=== PATIENT | male | born 1950 | race Caucasian/White ===

== ENCOUNTER 2022-11-20 05:11 | Inpatient (IN) ==
--- NOTE | 2022-10-21 13:33 | PAT Medication Instructions ---
Medication Instructions Date of Service October 21, 2022 Home Medications albuterol sulfate 90 mcg/actuation aerosol inhaler 1 inh inhalation QID PRN SHORT OF BREATH atorvastatin 20 mg tablet (Lipitor) 20 mg PO QAM cholecalciferol (vitamin D3) 25 mcg (1,000 unit) tablet (Vitamin D3) 25 mcg PO HS hydrochlorothiazide 25 mg tablet 25 mg PO QAM levocetirizine 5 mg tablet (Xyzal) 5 mg PO PM magnesium oxide 400 mg PO QAM metformin 500 mg tablet 500 mg PO BID metoprolol succinate 50 mg tablet,extended release 24 hr (Toprol XL) 50 mg PO QAM mometasone 50 mcg/actuation nasal spray 2 spray intranasal BID PRN Congestion montelukast 10 mg tablet (Singulair) 10 mg PO HS Multivitamin 50 Plus tablet 1 tab PO HS olmesartan 40 mg tablet (Benicar) 20 mg PO QAM omeprazole 20 mg capsule,delayed release 20 mg PO QAM sertraline 100 mg tablet (Zoloft) 100 mg PO QAM tamsulosin 0.4 mg capsule (Flomax) 0.4 mg PO QAM valacyclovir 500 mg tablet (Valtrex) 500 mg PO QAM vit C 133.3 ss-lsoazwtfdhom-xfaehhb-elderberry 16.7 mg chewable tablet (Emergen- C Elderberry) 2 tab PO QAM zinc 10 mg tablet 10 mg PO BID STOP taking 2 weeks before surgery (or as soon as possible if surgery is within 2 weeks) vit C 133.3 gf-lkcbdwygrvnz-fxvbqkf-elderberry 16.7 mg chewable tablet (Emergen- C Elderberry) 2 tab PO QAM DO NOT take the morning of surgery hydrochlorothiazide 25 mg tablet 25 mg PO QAM magnesium oxide 400 mg PO QAM metformin 500 mg tablet 500 mg PO BID olmesartan 40 mg tablet (Benicar) 20 mg PO QAM zinc 10 mg tablet 10 mg PO BID Take morning of surgery With a small sip of water, OTHERWISE NOTHING TO EAT OR DRINK AFTER MIDNIGHT: albuterol sulfate 90 mcg/actuation aerosol inhaler 1 inh inhalation QID PRN SHORT OF BREATH (use if needed; please bring rescue inhaler with you to hospital day of surgery if possible) atorvastatin 20 mg tablet (Lipitor) 20 mg PO QAM metoprolol succinate 50 mg tablet,extended release 24 hr (Toprol XL) 50 mg PO QAM mometasone 50 mcg/actuation nasal spray 2 spray intranasal BID PRN Congestion (if needed) omeprazole 20 mg capsule,delayed release 20 mg PO QAM sertraline 100 mg tablet (Zoloft) 100 mg PO QAM tamsulosin 0.4 mg capsule (Flomax) 0.4 mg PO QAM valacyclovir 500 mg tablet (Valtrex) 500 mg PO QAM Take evening before surgery albuterol sulfate 90 mcg/actuation aerosol inhaler 1 inh inhalation QID PRN SHORT OF BREATH (if needed) cholecalciferol (vitamin D3) 25 mcg (1,000 unit) tablet (Vitamin D3) 25 mcg PO HS levocetirizine 5 mg tablet (Xyzal) 5 mg PO PM metformin 500 mg tablet 500 mg PO BID mometasone 50 mcg/actuation nasal spray 2 spray intranasal BID PRN Congestion (if needed) montelukast 10 mg tablet (Singulair) 10 mg PO HS Multivitamin 50 Plus tablet 1 tab PO HS zinc 10 mg tablet 10 mg PO BID Other Notes If you have any questions please call us at [phone] or [phone] or [phone] or [phone]
--- NOTE | 2022-10-23 09:26 | Anesthesiology Consultation ---
Date of Service October 23, 2022 Assessment & Plan (1) Encounter for pre-operative examination: - awaiting PCP clearance. - abn stress test, reduced appetite, unintentional 10 lb weight loss over past several months. denies night sweats, worsened depression, SI. PCP clearance needed per discussion with Dr. Keen. Pt and were advised would be sending optimization form to PCP at PAT visit. Surgeon's office made aware. - anesthesia concern: dyspnea, gasping after peripheral block for previous shoulder surgery; pt states no issues with subsequent shoulder surgery and peripheral block. Case discussed with Dr. Keen in detail who advised consideration for anesthesiologist assigned to case day of surgery to either not do block or to do peripheral nerve block with lower likelihood to impact phrenic nerve. - check BSG am DOS. - Outpatient joint assessment: Patient is currently scheduled for inpatient pathway. If re-evaluated pending system levels during current pandemic/surgeon requests outpatient pathway, patient is not acceptable candidate for outpatient joint program from anesthesia standpoint. Chart Review Chart Review: Pending: Refer to Additional Notes / Consult section and Patient seen in Pre Admission Testing Teaching & Discussion Pre-Anesthesia Teaching/Discussion Notes: Instructed NPO after midnight before surgery, except medications with 15 cc of water. Medication instructions provided according to the PAT guidelines. History Surgery Operation Date: 11/20/22 13:00 Proposed Procedures p Left Reverse Total Shoulder Arthroplasty - Van Ch M.D. Height/Weight Height: 5 ft 5 in Weight: 108.862 kg Allergies Allergy/AdvReac Type Severity Reaction Status Date / Time No Known Allergies Allergy Verified 10/21/22 07:36 Medications Home Medications Medication Instructions Recorded Confirmed Last Taken albuterol sulfate 90 mcg/actuation 1 inh inhalation QID PRN SHORT OF 10/21/22 10/21/22 Unknown aerosol inhaler BREATH atorvastatin 20 mg tablet (Lipitor) 20 mg PO QAM 10/21/22 10/21/22 Unknown cholecalciferol (vitamin D3) 25 25 mcg PO HS 10/21/22 10/21/22 Unknown mcg (1,000 unit) tablet (Vitamin D3) hydrochlorothiazide 25 mg tablet 25 mg PO QAM 10/21/22 10/21/22 Unknown levocetirizine 5 mg tablet (Xyzal) 5 mg PO PM 10/21/22 10/21/22 Unknown magnesium oxide 400 mg PO QAM 10/21/22 10/21/22 Unknown metformin 500 mg tablet 500 mg PO BID 10/21/22 10/21/22 Unknown metoprolol succinate 50 mg 50 mg PO QAM 10/21/22 10/21/22 Unknown tablet,extended release 24 hr (Toprol XL) mometasone 50 mcg/actuation nasal 2 spray intranasal BID PRN 10/21/22 10/21/22 Unknown spray Congestion montelukast 10 mg tablet 10 mg PO HS 10/21/22 10/21/22 Unknown (Singulair) fuzkltmnhpwk-swqzmewz-opguia 1 tab PO HS 10/21/22 10/21/22 Unknown tablet (Multivitamin 50 Plus tablet) olmesartan 40 mg tablet (Benicar) 20 mg PO QAM 10/21/22 10/21/22 Unknown omeprazole 20 mg capsule,delayed 20 mg PO QAM 10/21/22 10/21/22 Unknown release sertraline 100 mg tablet (Zoloft) 100 mg PO QAM 10/21/22 10/21/22 Unknown tamsulosin 0.4 mg capsule (Flomax) 0.4 mg PO QAM 10/21/22 10/21/22 Unknown valacyclovir 500 mg tablet 500 mg PO QAM 10/21/22 10/21/22 Unknown (Valtrex) vit C 133.3 2 tab PO QAM 10/21/22 10/21/22 Unknown sc-oqqbzqpczcje-pdqlewv-elderberry 16.7 mg chewable tablet (Emergen-C Elderberry) zinc 10 mg tablet 10 mg PO BID 10/21/22 10/21/22 Unknown Past Medical History Medical History (Updated 10/23/22 @ 10:09 by Jesusita James PA-C) Abnormal stress test 2017, pt and state are not aware, deny additional testing Asthma BPH (benign prostatic hyperplasia) Carotid stenosis < 50% stenosis ICAs bilat 09/25 carotid doppler Chronic obstructive pulmonary disease pt states dx was questioned yrs ago, continues inhalers for persistent symptoms, follows with PCP, last rescue inhaler use 2 days ago; he states typically only uses rescue inhaler prior to planned increased activity; controlled, stable per pt Depression Diabetes mellitus, type 2 NIDDM GERD (gastroesophageal reflux disease) controlled, stable per pt History of COVID-19 05/2022>denies hospitalization; symptoms fully resolved Hyperlipidemia Hypertension controlled, stable per pt Irregular heart rate occasional skipped beats, denies associated palpitations, dizziness or lightheadedness per pt Peripheral neuropathy hands and feet Pulmonary nodules follows with Dr. Gimenez per PCP records Restless leg syndrome SCC (squamous cell carcinoma) face, s/p surgical intervention Sleep apnea CPAP with supplemental oxygen per PCP records; pt and state he was later advised supplemental oxygen was no longer needed Patient denies h/o stroke, seizures, heart attack, heart failure, blood clots or blood transfusions. Exercise / Class Metabolic Activity III < 4 Walking/Shop/Light housework (on flat surfaces d/t fall; denies shortness of breath or chest discomfort with usual activities) Past Family History Family History Other No family history of adverse response to anesthesia Past Surgical History Surgical History (Updated 10/23/22 @ 10:10 by Jesusita James PA-C) H/O knee surgery meniscectomy right knee History of appendectomy History of cholecystectomy History of colonoscopy History of cystoscopy History of esophagogastroduodenoscopy (EGD) History of repair of rotator cuff RT/LEFT History of tooth extraction Hx of eye surgery RT>NAIL INJURY (HAS LENS EXCHANGED>LIMITED VISION IN RT EYE) Past Anesthesia History No Family Hx of Anesthesia Complications and Other (dyspnea, gasping after peripheral block for previous shoulder surgery; pt states no issues with subsequent shoulder surgery and peripheral block) History of PONV No Hx of PONV and No Hx of Motion Sickness Social History Smoking Status: Former smoker tobacco type: cigarettes Do You Dip or Chew Tobacco: No Smoking End Date: 2006 Hx Alcohol Use: No substance use type: does not use Review of Systems Patient denies chest pain, shortness of breath, dyspnea on exertion, fever, chills, cough, wheezing, lightheadedness, dizziness, presyncope, or palpitations. Physical Exam Vital Signs Vitals BP 101/60 manual P 65 TEMP 98 SP02 94% on RA RESP 18 Physical Full cervical extension range of motion without pain TMD 3.5 finger breadths Mallampati Score 2 Dentition: intact, cap; denies chipped or loose teeth, implants or bridges Lungs: normal respiratory effort. Good air movement, clear throughout to auscultation, no adventitious breath sounds Cardiac: regular rate and rhythm, no murmurs noted Carotid arteries: negative bruit bilat Lab Results Anesthesia Preop Results Results Anesthesia Widget: WBC 8.15 K/ul (4.8-10.8) 10/23/22 Hgb 13.7 g/dl (14.0-18.0) L 10/23/22 Hct 39.2 % (40.1-51.0) L 10/23/22 Plt 227 K/uL (130-400) 10/23/22 Na 142 mmol/L (136-145) 10/23/22 K 3.8 mmol/L (3.5-5.1) 10/23/22 Cl 107 mmol/L (98-107) 10/23/22 CO2 29 mmol/L (21-32) 10/23/22 BUN 22 mg/dl (6-23) 10/23/22 Creat 0.78 mg/dl (0.6-1.4) 10/23/22 Glucose Level 144 mg/dl (70-99(Fasting)) H 10/23/22 PT 11.4 Seconds (9.0-12.0) 10/23/22 PTT 26.6 Seconds (21.0-31.0) 10/23/22 INR 1.1 (0.9-1.1) 10/23/22 HA1c 6.7 % (4.5-5.6) H 10/23/22 Urine Color Dark Yellow 10/23/22 Urine Appearance Clear (Clear) 10/23/22 Urine pH 5.0 (4.5-7.5) 10/23/22 Urine Specific [place] 1.027 (1.000-1.030) 10/23/22 Urine Protein Negative (Negative) 10/23/22 Urine Glucose (UA) Negative (Negative) 10/23/22 Urine Ketones Trace (Negative) H 10/23/22 Urine Blood Negative (Negative) 10/23/22 Urine Nitrite Negative (Negative) 10/23/22 Urine Bilirubin Negative (Negative) 10/23/22 Urine Urobilinogen Negative (Negative) 10/23/22 Urine Leukocyte Esterase Negative (Negative) 10/23/22 Blood Type O Positive 10/23/22 Antibody Screen NEGATIVE 10/23/22 Testing Electrocardiogram Date: 10/23/22 Sinus bradycardia, rate 55 bpm Chest X-Ray Date: 10/23/22 Cardiomediastinal and hilar silhouettes are within normal limits. No pneumothorax, pleural effusion, airspace consolidation or overt pulmonary edema. Bones appear grossly intact. Spondylitic spurring of the spine. Surgical clips of the upper abdomen. IMPRESSION: No acute process. Echocardiogram Date: 09/12/22 EF 60% No obvious regional wall motion abnormalities Mildly dilated LA No significant valvular pathology Stress Test Date: 04/03/17 Pharmacologic EF 62% Small fixed defect involving the inferior wall could represent scarring from previous infarction Other Testing Carotid doppler 09/12/22 Scattered smooth plaque throughout both carotid circulations with less than 50% stenosis COVID-19 Risk Screen Screening Information COVID-19 Screen Date: 10/23/22 Exposure 21 Days Family/Household +COVID Last 21 Days: No Exposure 10 Days Any COVID Exposure Last 10 Days: No Symptoms Last 10 Days Experienced COVID Sx Last 10 Days: No + COVID 0-90 Days COVID + in Last 0-90 Days: No
--- NOTE | 2022-11-19 18:25 | History & Physical Report ---
Date of Service November 19, 2022 Assessment & Plan (1) Complete rotator cuff tear or rupture of left shoulder, not specified as traumatic: Plan: He has a massive, retracted, full-thickness rotator cuff tear with near complete fatty atrophy of the supraspinatus and infraspinatus muscle bellies. This is therefore an irrepairable rotator cuff tear. I suspect this is an acute on chronic tear with his more recent injury but chronic tearing of the rotator cuff. He has proximal migration of the humeral head and remodeling changes consistent with early rotator cuff tear arthropathy. He continues to have very limited motion and function of his shoulder. We discussed treatment options including observation, injections, or definitive surgical intervention with a reverse total shoulder arthroplasty. I advised him that I can help with his pain but not his function with an injection. The only way to significantly improve his function and pain is with a reverse total shoulder. He would like to proceed with that at this point. I think is very reasonable. Risks, benefits, and alternatives of surgery were explained in detail. The surgical procedure, as well as postoperative recovery and rehabilitation, was also explained in detail. Risks include bleeding; infection; damage to surrounding structures such as nerves, blood vessels, and tendons that run in the area; persistent pain or stiffness; hardware failure; dislocation; brachial plexus palsy; blood clots; or need for further surgery. The patient understands all of this and wishes to proceed with surgery. Risks will be reviewed on the day of surgery and informed consent obtained. History of Present Illness Chief Complaint: Left shoulder pain and weakness Primary Care Provider: Jaquelin Rosales Mr. Del Angel returns. Again, he is a 72-year-old [id number] male with a left shoulder injury that occurred on September 17 when he fell down a flight of stairs. He actually has no recollection of the event, but thinks that he fell going down one of the top steps on the flight of steps and fell all the way down and hit his head. He does think that there was a loss of consciousness. He was life-flighted to [place]. He reportedly was diagnosed with a left shoulder dislocation that was reduced in the emergency room. His says that the shoulder then redislocated while he was in the ER without any obvious recurrent trauma, and was again reduced without difficulty. Since then, he denies any recurrent dislocations or feelings of instability. However, he has had profound loss of function in that left shoulder. He notes that his left shoulder was functioning well prior to this injury on September 17. He does note a previous left shoulder rotator cuff repair surgery done about 8 years ago. He did note some pain in that shoulder around 6 months ago and received a subacromial steroid injection that helped with this pain. He reports that he did get an MRI around that time which reportedly showed some recurrent tearing of the rotator cuff, but he maintained good function and did not have any surgical intervention. This was done through another provider. He denies any other significant extremity injury from this fall. No intracranial bleed. Allergies Allergy/AdvReac Type Severity Reaction Status Date / Time No Known Allergies Allergy Verified 10/21/22 07:36 Home Medications Medication Instructions Recorded Confirmed Type albuterol sulfate 90 mcg/actuation 1 inh inhalation QID PRN SHORT OF 10/21/22 10/21/22 History aerosol inhaler BREATH atorvastatin 20 mg tablet (Lipitor) 20 mg PO QAM 10/21/22 10/21/22 History cholecalciferol (vitamin D3) 25 25 mcg PO HS 10/21/22 10/21/22 History mcg (1,000 unit) tablet (Vitamin D3) hydrochlorothiazide 25 mg tablet 25 mg PO QAM 10/21/22 10/21/22 History levocetirizine 5 mg tablet (Xyzal) 5 mg PO PM 10/21/22 10/21/22 History magnesium oxide 400 mg PO QAM 10/21/22 10/21/22 History metformin 500 mg tablet 500 mg PO BID 10/21/22 10/21/22 History metoprolol succinate 50 mg 50 mg PO QAM 10/21/22 10/21/22 History tablet,extended release 24 hr (Toprol XL) mometasone 50 mcg/actuation nasal 2 spray intranasal BID PRN 10/21/22 10/21/22 History spray Congestion montelukast 10 mg tablet 10 mg PO HS 10/21/22 10/21/22 History (Singulair) jdjbcvgxprmn-vzlemgop-geockb 1 tab PO HS 10/21/22 10/21/22 History tablet (Multivitamin 50 Plus tablet) olmesartan 40 mg tablet (Benicar) 20 mg PO QAM 10/21/22 10/21/22 History omeprazole 20 mg capsule,delayed 20 mg PO QAM 10/21/22 10/21/22 History release sertraline 100 mg tablet (Zoloft) 100 mg PO QAM 10/21/22 10/21/22 History tamsulosin 0.4 mg capsule (Flomax) 0.4 mg PO QAM 10/21/22 10/21/22 History valacyclovir 500 mg tablet 500 mg PO QAM 10/21/22 10/21/22 History (Valtrex) vit C 133.3 2 tab PO QAM 10/21/22 10/21/22 History qi-tbdxubhzevnl-bwbhnjj-elderberry 16.7 mg chewable tablet (Emergen-C Elderberry) zinc 10 mg tablet 10 mg PO BID 10/21/22 10/21/22 History Past Med/Surg History Medical History (Updated 11/19/22 @ 18:24 by Van Ch M.D.) Abnormal stress test 2016, pt and state are not aware, deny additional testing Asthma BPH (benign prostatic hyperplasia) Carotid stenosis < 50% stenosis ICAs bilat 09/25 carotid doppler Chronic obstructive pulmonary disease pt states dx was questioned yrs ago, continues inhalers for persistent symptoms, follows with PCP, last rescue inhaler use 2 days ago; he states typically only uses rescue inhaler prior to planned increased activity; controlled, stable per pt Depression Diabetes mellitus, type 2 NIDDM GERD (gastroesophageal reflux disease) controlled, stable per pt History of COVID-19 05/2022>denies hospitalization; symptoms fully resolved Hyperlipidemia Hypertension controlled, stable per pt Irregular heart rate occasional skipped beats, denies associated palpitations, dizziness or lightheadedness per pt Peripheral neuropathy hands and feet Pulmonary nodules follows with Dr. Gimenez per PCP records Restless leg syndrome SCC (squamous cell carcinoma) face, s/p surgical intervention Sleep apnea CPAP with supplemental oxygen per PCP records; pt and state he was later advised supplemental oxygen was no longer needed Surgical History (Updated 10/23/22 @ 10:10 by Jesusita James PA-C) H/O knee surgery meniscectomy right knee History of appendectomy History of cholecystectomy History of colonoscopy History of cystoscopy History of esophagogastroduodenoscopy (EGD) History of repair of rotator cuff RT/LEFT History of tooth extraction Hx of eye surgery RT>NAIL INJURY (HAS LENS EXCHANGED>LIMITED VISION IN RT EYE) Family History Other No family history of adverse response to anesthesia Social History Smoking Status: Former smoker Second Hand Exposure: Yes (IN THE PAST); Hx Alcohol Use: No Preferred Language: Faroese [employer] Required: No Beliefs That Will Affect Care: None Current Living Situation: Spouse Feels Safe at Home: Yes Assistive Devices: Glasses Physical Exam Physical Exam: Examination of the left shoulder reveals fairly severe limitation and weakness of the supraspinatus and infraspinatus. He can only achieve about 45 degrees of active abduction, and active rotation only to neutral. Subscapularis strength is well maintained. Positive [place]'s test. Positive impingement testing. Results & Data ([facility]) Diagnostic Findings Previous x-rays of the left shoulder from September 17 were reviewed. We do not have any x-ray showing dislocation. Presumably all of the available x-rays are post reduction that show concentric reduction of the glenohumeral joint. CT scan of the left shoulder from September 18 was reviewed. It shows some mild glenohumeral joint arthritis, but is otherwise unremarkable. No fractures are seen. Incidentally noted are multiple old healed rib fractures. New MRI of the left shoulder obtained on 10/13/22 was reviewed. It shows a massive, full-thickness, retracted rotator cuff tear. The rotator cuff tendon is medial to the level of the glenoid rim. There is near complete fatty atrophy of the supraspinatus and infraspinatus muscle bellies, as well as the upper portion of the subscapularis. There is proximal migration of the humeral head with remodeling changes consistent with early rotator cuff tear arthropathy.
[2022-11-20] MEDS ORDERED: LR 15ML/HR IV SCH (06:00)
[2022-11-20] MEDS ORDERED: ACETAMINOPHEN 500 MG TAB PO SCH (06:00)
[2022-11-20] MEDS ORDERED: dexAMETHasone 4 MG TAB PO SCH (06:00)
[2022-11-20] MEDS ORDERED: TRANEXAMIC ACID 1,000 MG **IV Pre-op IV SCH (06:00)
[2022-11-20] MEDS ORDERED: CeleBREX 200 MG CAP PO SCH (06:00)
[2022-11-20] MEDS ORDERED: FAMOTIDINE 20 MG TAB PO SCH (06:00)
[2022-11-20] MEDS ORDERED: GABAPENTIN 300 MG CAP PO SCH (06:00)
[2022-11-20] MEDS ORDERED: ceFAZolin 2000MG 2,000 MG/15 ML SYR IV SCH (06:00)
[2022-11-20] MEDS ORDERED: BUPIVACAINE 0.5 % 5 MG/1 ML PF 10ML VIAL ONE (06:36)
[2022-11-20] MEDS ORDERED: fentaNYL citrate 100 MCG/2 ML VIAL ONE (06:48)
[2022-11-20] MEDS ORDERED: DEXAMETHASONE SOD INJ 4 MG/ML VIAL ONE (06:48)
[2022-11-20] MEDS ORDERED: ROCURONIUM BROMIDE 10 MG/ML 5 ML VIAL IV ONE (06:48)
[2022-11-20] MEDS ORDERED: LIDOCAINE 2% MPF LOCAL 5 ML VIAL INFIL ONE (06:48)
[2022-11-20] MEDS ORDERED: PROPOFOL IV EMULSION 10 MG/ML 20 ML VIAL IV ONE (06:48)
[2022-11-20] MEDS ORDERED: ONDANSETRON INJ 2 MG/ML 2 ML VIAL ONE (06:48)
[2022-11-20] MEDS ORDERED: MIDAZOLAM HCL 1 MG/ML 2ML VIAL ONE (06:48)
--- NOTE | 2022-11-20 07:03 | History & Physical Bridge Note ---
Date of Service November 20, 2022 History & Physical Bridge Note I have examined the patient, reviewed the History & Physical and in the interval since the performance of the History & Physical I have noted the following changes of clinical significance: no changes noted
[2022-11-20] MEDS ORDERED: NALOXONE HCL 0.4 MG/1 ML VIAL/CARP IV PRN ×2 (07:35→10:11)
[2022-11-20] MEDS ORDERED: HYDROmorphone INJ 1 MG/ML SYRINGE IV PRN (07:35)
[2022-11-20] MEDS ORDERED: LABETALOL HCL IV 5 MG/ML 20ML IV PRN (07:35)
[2022-11-20] MEDS ORDERED: PROMETHAZINE HCL 12.5 MG in SODIUM CHLORIDE 0.9% 50 ML IV PRN (07:35)
[2022-11-20] MEDS ORDERED: ONDANSETRON INJ 2 MG/ML 2 ML VIAL IV PRN ×2 (07:35→10:11)
[2022-11-20] MEDS ORDERED: fentaNYL citrate 100 MCG/2 ML VIAL IV PRN (07:35)
[2022-11-20] MEDS ORDERED: ATROPINE SULFATE 0.1 MG/ML 10ML SYR IV PRN (07:35)
[2022-11-20] MEDS ORDERED: FLUMAZENIL 0.1 MG/1 ML 10 ML VIAL IV PRN (07:35)
[2022-11-20] MEDS ORDERED: ePHEDrine sulfate 50 MG/ML AMP IV PRN (07:35)
[2022-11-20] MEDS ORDERED: SUCCINYLCHOLINE 100MG/5ML SYR IV ONE (07:39)
--- NOTE | 2022-11-20 09:20 | Operative Report ---
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 Surgeon Van Ch MD [place] Operator John Kwok PA-C Estimated Blood Loss 75 Findings Consistent with Post-Op Diagnosis Specimens None Drains None Anesthesia Type General Regional Complications none Disposition Disposition: Recovery Room Indications Mr. Del Angel is a 72-year-old male with left shoulder pain and weakness since he fell down a flight of steps on September 17. He also notes a previous history of rotator cuff repair 8 years ago. History, clinical exam, and imaging were consistent with the above diagnosis. Risks, benefits, and alternatives of surgery were explained in detail. The patient understood all this and wished to proceed. Description of Procedure Components Implanted: Tornier Reverse Total Shoulder implants Perform glenoid baseplate: 29mm, 15 degree full wedge with 6.5mm central screw and 5.0mm peripheral screws Glenosphere: 39mm, +3mm, eccentric offset Ascend Flex humeral stem: 7B Standard length (90mm) Humeral tray: 3.5 mm offset, +0mm thickness Polyethylene insert: 39mm, +9mm thickness Patient was identified in the preoperative holding area. Operative extremity was marked. Regional blockade was given by the Anesthesia Staff. Patient was then brought back to the operating room, and general anesthesia was induced without complication. Appropriate weight-based dose of Ancef was infused intravenously for antibiotic prophylaxis. The patient was then placed in the beachchair position. Left arm was then prepped and draped in a standard sterile fashion using Chlorhexidine prep. A standard deltopectoral incision was made through the skin and subcutaneous tissue. The cephalic vein was identified and retracted medially. Small branches to the deltoid were coagulated as necessary. Abundant scarring around the deltopectoral interval and conjoined tendon was noted, likely consistent w ith his previous history of shoulder surgery. The clavipectoral fascia was then incised and the subdeltoid space was opened. The rotator cuff was found to be deficient, and I therefore decided to perform a reverse total shoulder arthroplasty as planned preoperatively. The biceps tendon was identified within the bicipital groove and tenodesed at the superior border of the pectoralis tendon with #2 FiberWire suture. The biceps tendon was then divided proximal to the tenodesis site and the rotator interval was opened. The proximal portion of the biceps tendon was excised. The remaining subscapularis tendon was elevated subperiosteally off of the lesser tuberosity. The glenohumeral joint was then dislocated, and large osteophytes were debrided with a ronguer. The intramedullary canal of the humerus was then opened with a canal finder. The humeral head cut was then made in the appropriate inclination and version using the cutting guide. The humeral canal was then sequentially broached to the appropriate size. A protective cap was then placed on top of the humeral trial. Old permanent sutures consistent with previous rotator cuff repair were removed as they were encountered. I then turned my attention to the glenoid. The proximal stump of the biceps tendon was excised, along with the labrum circumferentially around the glenoid. The Blueprint drill guide was then positioned on the glenoid, and the guidepin was then inserted. The 15 degree angled reamer was then inserted over the guidepin and an reamed to an appropriate depth. The central screw hole was drilled, and appropriate length 6.5mm central screw was selected. The baseplate was then implanted into place according to our preoperative Blueprint plan by tightening down the central screw. A peripheral 5mm nonlocking screw was placed postero-superiorly first for additional compression of the baseplate, and then additional locking 5 mm peripheral screws were placed to complete fixation of the baseplate. Glenosphere was then impacted and secured. A trial humeral tray and insert were placed on the trial humeral stem, and a trial reduction was carried out. Once I achieved acceptable joint stability and range of motion with the trial implants, the final humeral implants were assembled on the back table and then impacted into position. I then took the shoulder through full range of motion to ensure good stability and acceptable motion. Wound was then copiously irrigated with sterile saline. Deep fascia was closed with 0 V-lock suture. Subcutaneous tissue was closed with 2-0 V-lock, and skin was closed with 3-0 V-lock. Skin was then sealed with Dermabond. Sterile dressings were then applied with a waterproof silver-impregnated dressing, and the arm was placed into a sling. The patient was awakened from anesthesia and taken to the Post Anesthesia Care Unit in stable condition. There were no immediate complications from the procedure. I was present and scrubbed for the entire procedure, with the exception of final skin closure and dressing application. Due to the complex nature of the procedure, the entire surgery was performed with the operational assistance of John Kwok PA-C. The assistant program manager, under direct supervision, was involved in the performance of all aspects of the surgical procedure including hemostasis, tissue incision and retraction, instrument management, patient positioning, and wound closure. I attest to the content of the Intraoperative Record and any orders documented therein. Any exceptions are noted below.
--- NOTE | 2022-11-20 09:54 | Anesthesiology Progress Note ---
Date of Service November 20, 2022 Anesthesia Post Procedure Vital Signs Vital Signs: Temp Pulse Resp BP Pulse Ox O2 Del Method O2 Flow Rate 11/20/22 09:40 36.2 C L 89 18 111/72 94 Nasal Cannula 4 11/20/22 09:30 90 18 110/62 94 Nasal Cannula 4 11/20/22 09:20 89 18 142/81 H 94 Oxymask 5 11/20/22 09:14 36.0 C L 90 20 115/83 94 Oxymask 5 11/20/22 05:36 36.8 C 63 20 138/87 94 Room Air Transfer of Care Handoff Completed per policy Notes Mental Status: alert / awake / arousable Patient Amnestic to Procedure: Yes Nausea / Vomiting: adequately controlled Pain: adequately controlled Airway Patency, RR, SpO2: stable & adequate BP & HR: stable & adequate Hydration State: stable & adequate Anesthetic Complications: no major complications apparent
[2022-11-20] MEDS ORDERED: ALBUTEROL HFA 8 GM INHALER INH PRN (10:11)
[2022-11-20] MEDS ORDERED: bisacodyL 10 MG SUPP PR PRN (10:11)
[2022-11-20] MEDS ORDERED: oxyCODONE HCL IR 5 MG TAB (IMMEDIATE RELEASE) PO PRN (10:11)
[2022-11-20] MEDS ORDERED: PHARMACY GLYCEMIC MGMT CONSULT PRN (10:11)
[2022-11-20] MEDS ORDERED: METOCLOPRAMIDE HCL INJ 5 MG/ML 2 ML VIAL IV PRN (10:11)
[2022-11-20] MEDS ORDERED: MAGNESIUM HYDROXIDE SUSP 30 ML UDC PO PRN (10:11)
[2022-11-20] MEDS: SODIUM CHLORIDE 0.9% 1000ML 1,000 ML IV SCH ×2 (10:21→21:08)
[2022-11-20] MEDS ORDERED: GLUCOSE 40% GEL 15 GM TUBE PO PRN (10:30)
[2022-11-20] MEDS ORDERED: GLUCOSE 10 TAB/TUBE PO PRN (10:30)
[2022-11-20] MEDS ORDERED: GLUCAGON FOR INJ 1 MG VIAL IM PRN (10:30)
[2022-11-20] MEDS ORDERED: DEXTROSE 50% 50 ML SYRINGE IV PRN (10:30)
[2022-11-20] MEDS ORDERED: CARBOHYDRATES FOR HYPOGLYCEMIA PO PRN (10:30)
--- NOTE | 2022-11-20 11:11 | XRay Report ---
XR shoulder LT min 2V routine CLINICAL HISTORY: Post shoulder surgery COMPARISON: None FINDINGS: Alignment of the reverse total left shoulder arthroplasty is anatomic. Calcific/ossific de nsity along the proximal left humerus is likely chronic. There is no periprosthetic fracture or unexp ected radiopaque foreign body. There is a possible trace left pleural effusion with mild left basilar opacity. IMPRESSION: Expected findings following reverse total left shoulder arthroplasty. ACT 112: Negative or not required by law. Electronically signed by: Yuniel Lemons M.D. 11/20/2022 11:10 AM
[2022-11-20] MEDS ORDERED: LANTUS PER UNIT CHARGE SQ SCH (11:30)
--- NOTE | 2022-11-20 12:46 | Pharmacy Report ---
Pharmacy Glycemic Short Note 2 - Date of Service November 20, 2022 - Glycemic Short BSG Results (Last 24 hours): 11/20/22 11/20/22 11/20/22 05:39 09:17 12:13 POC Glucose 135 H 193 H 233 H OUTPATIENT ANTIDIABETIC REGIMEN: * metformin 500 mg PO BID * A1c = 6.7% ASSESSMENT: * Ad is POD #0 s/p left reverse total shoulder arthroplasty. He has a h/o diabetes which is well controlled on metformin. * Anticipate short term hyperglycemia due to administration of steroids willard-op (DXM 8 mg PO x 1 and 4mg IV x 1) * Will treat with a one time dose of Lantus (~ 0.4 units/kg) and Novolog weight/stress 3 (both based on AdjBW). May require a second dose of Lantus on 11/21 am. PLAN FOR INPATIENT GLYCEMIC CONTROL: * Hold outpatient oral diabetes medications * Basal insulin * Lantus 30 units SQ x 1 dose * Bolus insulin * NovoLog per scale ACHS or Q6hrs while NPO * Goal Range: Low 110 mg/dL - High 140 mg/dL * Correction Factor: 20 mg/dL/unit * Nutritional / Prandial insulin per carb ratio of 1 unit per 6 grams CHO consumed
[2022-11-20] MEDS: ACETAMINOPHEN 500 MG TAB PO SCH ×2 (13:43→18:02)
[2022-11-20] MEDS: INSULIN ASPART PER UNIT SC SCH ×3 (13:43→21:35)
[2022-11-20] MEDS: IBUPROFEN 600 MG TAB PO SCH ×2 (15:52→21:33)
[2022-11-20] MEDS: ceFAZolin 2000MG 2,000 MG/15 ML SYR IV SCH (15:53)
--- NOTE | 2022-11-20 18:44 | Orthopedic Progress Note ---
Date of Service November 20, 2022 Assessment & Plan (1) Complete rotator cuff tear or rupture of left shoulder, not specified as traumatic: Plan: Status post left reverse total shoulder arthroplasty today doing well. -We will likely need dressing change before discharge. -Plan for discharge home tomorrow morning. Admission and Anticipated Discharge Date Admission Date: November 20, 2022 Subjective Patient resting comfortably after surgery today. He denies any significant pain in his left shoulder. He is eating and denies nausea or vomiting. Physical Exam Physical Exam: Silverlon dressing in place. He does have some bloody drainage on this dressing. Motor and sensory function is intact distally in his hand. He still notes some mild resolving numbness in the index finger and thumb from his nerve block. Results & Data ([facility]) Vital Signs (Past 12 Hours) Vital Signs Temp Pulse Resp BP Pulse Ox O2 Del Method O2 Flow Rate 11/20/22 18:19 36.8 C 72 18 124/74 94 Room Air 11/20/22 15:30 36.8 C 84 18 121/77 93 Room Air 11/20/22 15:28 36.8 C 82 18 121/77 93 Room Air 11/20/22 15:26 36.8 C 82 18 121/77 93 Room Air 11/20/22 13:10 36.7 C 89 18 114/69 93 Nasal Cannula 2 11/20/22 12:10 36.7 C 80 18 111/70 93 Nasal Cannula 3 11/20/22 11:10 36.5 C 88 18 104/66 93 Nasal Cannula 3 11/20/22 10:50 36.5 C 88 18 99/62 L 92 Nasal Cannula 3 11/20/22 10:11 36.5 C 74 18 105/65 92 Nasal Cannula 3 11/20/22 09:40 36.2 C L 89 18 111/72 94 Nasal Cannula 4 11/20/22 09:30 90 18 110/62 94 Nasal Cannula 4 11/20/22 09:20 89 18 142/81 H 94 Oxymask 5 11/20/22 09:14 36.0 C L 90 20 115/83 94 Oxymask 5
[2022-11-20] MEDS ORDERED: SENNA 8.6 MG TAB PO SCH (21:00)
[2022-11-20] MEDS ORDERED: MONTELUKAST SODIUM 10 MG TABLET PO SCH (21:00)
[2022-11-20] MEDS ORDERED: CHOLECALCIFEROL 1,000 UNITS 25 MCG TAB PO SCH (21:00)
[2022-11-20] MEDS ORDERED: CETIRIZINE HCL 10 MG TABLET PO SCH (21:00)
[2022-11-20] MEDS: DOCUSATE SODIUM 100 MG CAP PO SCH (21:34)
[2022-11-21] MEDS: ceFAZolin 2000MG 2,000 MG/15 ML SYR IV SCH (00:08)
[2022-11-21] MEDS: ACETAMINOPHEN 500 MG TAB PO SCH ×2 (00:09→05:23)
[2022-11-21] MEDS: IBUPROFEN 600 MG TAB PO SCH ×2 (03:12→08:59)
[2022-11-21 06:36] LABS: Basophils # (auto) 0.03 K/uL (0-0.2); Basophils % (auto) 0.2 %; Eosinophils # (auto) 0.02 K/uL (0-0.50); Eosinophils % (auto) 0.1 %; Hematocrit (blood only) 36.5 % (42.0-52.0); Hemoglobin 12.3 g/dl (14.0-18.0); Immature Granulocytes % (auto) 0.7 %; Lymphocytes # (auto) 1.14 K/uL (1.2-3.4); Lymphocytes % (auto) 7.8 %; Mean Corpuscular Hemoglobin 31.2 pg (25.0-34.0); Mean Corpuscular Hgb Conc 33.7 g/dL (32.0-36.0); Mean Corpuscular Volume 92.6 fL (80.0-100.0); Mean Platelet Volume 9.5 fL (9.4-12.4); Monocytes # (auto) 1.44 K/uL (0.11-0.59); Monocytes % (auto) 9.9 %; Neutrophils # (auto) 11.84 K/uL (1.40-6.50); Neutrophils % (auto) 81.3 %; Platelet Count 254 K/uL (130-400); RDW Coefficient of Variation 12.7 % (11.5-14.5); RDW Standard Deviation 43.5 fL (36.4-46.3); Red Blood Count 3.94 M/uL (4.70-6.10); White Blood Count 14.57 K/ul (4.8-10.8)
[2022-11-21 06:49] LABS: BUN Creatinine Ratio 23.6 (10-20); Calcium 9.1 mg/dl (8.5-10.1); Est GFR (African American) 100.4 ml/min; Est GFR (Non-African American) 86.6 ml/min; Potassium 4.2 mmol/L (3.5-5.1)
[2022-11-21] MEDS ORDERED: metFORMIN HCL 500 MG TAB PO SCH (08:00)
[2022-11-21] MEDS: INSULIN ASPART PER UNIT SC SCH (08:54)
[2022-11-21] MEDS ORDERED: MULTIVITAMIN TAB PO SCH (09:00)
[2022-11-21] MEDS ORDERED: OLMESARTAN MEDOXOMIL 20 MG TAB PO SCH (09:00)
[2022-11-21] MEDS ORDERED: PANTOprazole 40 MG TAB PO SCH (09:00)
[2022-11-21] MEDS ORDERED: METOPROLOL SUCC 50MG EXT REL TAB PO SCH (09:00)
[2022-11-21] MEDS ORDERED: TAMSULOSIN HCL 0.4 MG CAP PO SCH (09:00)
[2022-11-21] MEDS ORDERED: SERTRALINE HCL 100 MG TABLET PO SCH (09:00)
[2022-11-21] MEDS ORDERED: MAGNESIUM OXIDE 400 MG TAB PO SCH (09:00)
[2022-11-21] MEDS ORDERED: ATORVASTATIN 20 MG TAB PO SCH (09:00)
[2022-11-21] MEDS ORDERED: valACYclovir HCL 500 MG TABLET PO SCH (09:00)
[2022-11-21] MEDS ORDERED: hydroCHLOROthiazide 25 MG TAB PO SCH (09:00)
--- NOTE | 2022-11-21 09:23 | Orthopedic Progress Note ---
Date of Service November 21, 2022 Assessment & Plan (1) Complete rotator cuff tear or rupture of left shoulder, not specified as traumatic: Plan: Postop day 1 status post left reverse TSA PT/OT protocols. Nonweightbearing left upper extremity. DVT prophylaxis- SCDs and MARELNE hose. Pain management as written. DC planning-patient is planning for outpatient PT upon discharge. Plan for discharge home today Admission and Anticipated Discharge Date Admission Date: November 20, 2022 Subjective Postop day 1 status post left reverse TSA Patient sitting up at the bedside eating his breakfast. No complaints this morning. Pain is controlled. He feels well. He is hoping to go home today. Denies shortness of breath, chest pain, lightheadedness. Physical Exam Physical Exam: Silverlon dressing is on but apparently had some leakage it was reinforced with an ABD. No further drainage noted. No erythema surrounding the shoulder. Sling is in place. He is moving his fingers well. He has some residual numbness in his thumb and distal index finger. He has good wrist range of motion at this time. Cap refills less than 2 seconds. Results & Data ([facility]) Vital Signs (Past 12 Hours) Vital Signs Temp Pulse Pulse Pulse Pulse Resp BP 11/21/22 08:13 36.7 C 87 16 128/74 11/21/22 05:22 87 144/84 H 11/21/22 03:10 85 14 11/21/22 03:03 36.6 C 75 18 108/58 L 11/21/22 00:20 36.8 C 79 18 106/55 L 11/20/22 22:10 64 19 Pulse Ox O2 Del Method O2 Flow Rate 11/21/22 08:13 94 Room Air 11/21/22 05:22 11/21/22 03:10 94 3 11/21/22 03:03 94 CPAP 11/21/22 00:20 CPAP 11/20/22 22:10 93 3 Laboratory Results Laboratory Results WBC 14.57 K/ul (4.8-10.8) H 11/21/22 05:58 RBC 3.94 M/uL (4.70-6.10) L 11/21/22 05:58 Hgb 12.3 g/dl (14.0-18.0) L 11/21/22 05:58 Hct 36.5 % (42.0-52.0) L 11/21/22 05:58 MCV 92.6 fL (80.0-100.0) 11/21/22 05:58 MCH 31.2 pg (25.0-34.0) 11/21/22 05:58 MCHC 33.7 g/dL (32.0-36.0) 11/21/22 05:58 RDW Std Deviation 43.5 fL (36.4-46.3) 11/21/22 05:58 RDW Coeff of Palmer 12.7 % (11.5-14.5) 11/21/22 05:58 Plt Count 254 K/uL (130-400) 11/21/22 05:58 MPV 9.5 fL (9.4-12.4) 11/21/22 05:58 Immature Gran % (Auto) 0.7 % 11/21/22 05:58 Neut % (Auto) 81.3 % 11/21/22 05:58 Lymph % (Auto) 7.8 % 11/21/22 05:58 [place] % (Auto) 9.9 % 11/21/22 05:58 Eos % (Auto) 0.1 % 11/21/22 05:58 Baso % (Auto) 0.2 % 11/21/22 05:58 Neut # (Auto) 11.84 K/uL (1.40-6.50) H 11/21/22 05:58 Lymph # (Auto) 1.14 K/uL (1.2-3.4) L 11/21/22 05:58 [place] # (Auto) 1.44 K/uL (0.11-0.59) H 11/21/22 05:58 Eos # (Auto) 0.02 K/uL (0-0.50) 11/21/22 05:58 Baso # (Auto) 0.03 K/uL (0-0.2) 11/21/22 05:58 Immature Gran # (Auto) 0.10 K/uL (0.01-0.20) 11/21/22 05:58 Sodium 140 mmol/L (136-145) 11/21/22 05:58 Potassium 4.2 mmol/L (3.5-5.1) 11/21/22 05:58 Chloride 105 mmol/L (98-107) 11/21/22 05:58 Carbon Dioxide 28 mmol/L (21-32) 11/21/22 05:58 Anion Gap 7 (3-11) 11/21/22 05:58 BUN 21 mg/dl (6-23) 11/21/22 05:58 Creatinine 0.89 mg/dl (0.6-1.4) 11/21/22 05:58 Est Cr Clr Drug Dosing 90.0 ml/min 11/21/22 05:58 Est GFR ( Amer) 100.4 ml/min 11/21/22 05:58 Est GFR (Non-Af Amer) 86.6 ml/min 11/21/22 05:58 BUN/Creatinine Ratio 23.6 (10-20) H 11/21/22 05:58 Glucose 151 mg/dl (70-99(Fasting)) H 11/21/22 05:58 POC Glucose 127 mg/dl (70-99) H 11/21/22 08:15 Calcium 9.1 mg/dl (8.5-10.1) 11/21/22 05:58 SARS-CoV-2, RNA, NAAT NEGATIVE (NEGATIVE) 11/20/22 05:35 Impressions Shoulder X-Ray 11/20/22 09:25 XR shoulder LT min 2V routine CLINICAL HISTORY: Post shoulder surgery COMPARISON: None FINDINGS: Alignment of the reverse total left shoulder arthroplasty is anatomic. Calcific/ossific density along the proximal left humerus is likely chronic. There is no periprosthetic fracture or unexpected radiopaque foreign body. There is a possible trace left pleural effusion with mild left basilar opacity. IMPRESSION: Expected findings following reverse total left shoulder arthroplasty. ACT 112: Negative or not required by law. Electronically signed by: Yuniel Lemons M.D. 11/20/2022 11:10 AM
[2022-11-21] MEDS: DOCUSATE SODIUM 100 MG CAP PO SCH (09:27)
== END 2022-11-21 11:55 | disposition home or self-care (01) | DRG 483 ==
LOC: ASU 05:11 → 3E 09:25